=== PATIENT | male | born 1990 | race Caucasian/White ===

== ENCOUNTER 2022-12-06 20:08 | Emergency (ER) | payer OTHER ==
[2022-12-06] MEDS ORDERED: Lidocaine 1% PF 5 ML VIAL ONE (20:25)
[2022-12-06] MEDS ORDERED: Boostrix 0.5 ML (Tdap) VIAL (>/=7 yrs of age) ONE (20:34)
[2022-12-06] MEDS ORDERED: Bacitracin 1 PK ONE (20:46)
== END 2022-12-06 21:08 | disposition home or self-care (01) ==
LOC: BURERS 20:08
DX: S01.112A Laceration without foreign body of left eyelid and periocular area, initial encounter (principal); F17.210 Nicotine dependence, cigarettes, uncomplicated; Z23 Encounter for immunization; W14.XXXA Fall from tree, initial encounter
CPT/HCPCS: 12013; 90471; 90715

== ENCOUNTER 2022-12-10 01:51 | Emergency (ER) | payer OTHER, SELFPAY ==
[2022-12-10] MEDS ORDERED: Ibuprofen 200 MG TAB ONE (02:06)
== END 2022-12-10 02:48 | disposition home or self-care (01) ==
LOC: BURERS 01:51
DX: S82.52XA Displaced fracture of medial malleolus of left tibia, initial encounter for closed fracture (principal); F17.210 Nicotine dependence, cigarettes, uncomplicated; W19.XXXA Unspecified fall, initial encounter
CPT/HCPCS: 29515